=== PATIENT | female | born 2000 | race Two or more races ===

== ENCOUNTER 2021-08-07 18:40 | Emergency (ER) | payer SELFPAY ==
[~2021-08-07] VITALS: Ht 162.6 cm; Wt 59.0 kg
[2021-08-07 23:17] VITALS: BP 137/55
== END 2021-08-07 23:18 | disposition home or self-care (01) ==
LOC: ER 18:40
DX: M54.2 Cervicalgia (principal); M54.9 Dorsalgia, unspecified; M79.602 Pain in left arm; M79.601 Pain in right arm; R51.9 Headache, unspecified; F17.210 Nicotine dependence, cigarettes, uncomplicated; V49.49XA Driver injured in collision with other motor vehicles in traffic accident, initial encounter; Y93.89 Activity, other specified; Y92.488 Other paved roadways as the place of occurrence of the external cause; Y99.8 Other external cause status
CPT/HCPCS: 70450; 72125; 72128